=== PATIENT | female | born 1990 | race Caucasian/White ===

== ENCOUNTER 2016-06-20 01:41 | Observation (INO) | payer MEDICAID, OTHER ==
--- NOTE | 2016-06-20 03:02 | ED PDOC ---
Arrival/HPI - General Chief Complaint: Syncope Time Seen by Provider: 06/20/16 01:59 Historian: Patient - History of Present Illness Narrative History of Present Illness (Text): 06/20/16 02:56 25 year old female who denies any significant past medical history presents to the Emergency department s/p syncopal episode [employer]. Patient reports she passed out while talking on the phone and woke up to her mother screaming. She states she doesn't remember losing consciousness or if she hit her head. Patient was also complaining some chest discomfort earlier but none now. She denies headache , dizziness, fever,shortness of breath, cough, nausea, vomiting, or diarrhea. She denies drug use. She states she is not a smoker other than occassional "hookah " and does not take any prescription medications. Time/Duration: Prior to Arrival Symptom Onset: Sudden Activities at Onset: Rest Context: Standing Past Medical History - Provider Review Nursing Documentation Reviewed: Yes - Infectious Disease Hx of Infectious Diseases: None - Cardiac Hx Hypotension: Yes - Hematological/Oncological Hx Anemia: Yes - Psychiatric Hx Substance Use: No - Anesthesia Hx Anesthesia: No Family/Social History - Physician Review Nursing Documentation Reviewed: Yes Family/Social History: Unknown Family HX Smoking Status: Never Smoked Hx Alcohol Use: No Hx Substance Use: No Allergies/Home Meds Allergies/Adverse Reactions: Allergies No Known Allergies Allergy (Verified 06/20/16 11:52) Home Medications: Home Meds Medication Instructions Recorded Confirmed No Known Home Med 03/24/16 06/20/16 Review of Systems - Physician Review All systems were reviewed & negative as marked: Yes - Review of Systems Constitutional: absent: Fevers Respiratory: absent: SOB, Cough Cardiovascular: Syncope. absent: Chest Pain Gastrointestinal: absent: Diarrhea, Nausea, Vomiting Neurological: absent: Headache, Dizziness Physical Exam Vital Signs Reviewed: Yes Vital Signs Temp Pulse Resp BP Pulse Ox 06/20/16 06:20 68 17 126/71 100 06/20/16 04:12 72 16 125/64 99 06/20/16 02:02 98.2 F 80 16 127/83 98 Temperature: Afebrile Blood Pressure: Normal Pulse: Regular Respiratory Rate: Normal Appearance: Positive for: Well-Appearing, Non-Toxic, Comfortable Pain Distress: None Mental Status: Positive for: Alert and Oriented X 3 - Systems Exam Head: Present: Atraumatic, Normocephalic Pupils: Present: PERRL Extroacular Muscles: Present: EOMI Conjunctiva: Present: Normal Mouth: Present: Moist Mucous Membranes Neck: Present: Normal Range of Motion Respiratory/Chest: Present: Clear to Auscultation, Good Air Exchange. No: Respiratory Distress, Accessory Muscle Use, Wheezes, Rales, Rhonchi Cardiovascular: Present: Regular Rate and Rhythm, Normal S1, S2. No: Murmurs, Rub, Gallop Abdomen: Present: Normal Bowel Sounds. No: Tenderness, Distention, Peritoneal Signs, Rebound, Guarding Back: Present: Normal Inspection Upper Extremity: Present: Normal Inspection. No: Cyanosis, Edema Lower Extremity: Present: Normal Inspection. No: Edema Neurological: Present: GCS=15, CN II-XII Intact, Speech Normal Skin: Present: Warm, Dry, Normal Color. No: Rashes Psychiatric: Present: Alert, Oriented x 3, Normal Insight, Normal Concentration Medical Decision Making ED Course and Treatment: 06/20/16 03:05 Impression: 25 year old female s/p syncopal episode. Physical exam unremarkable. Plan: --CT Head --CXR --EKG --Labs -- Reassess and disposition Prior Visits: Notes and results from previous visits were reviewed. Progress Notes: 06/20/16 04:42 EKG: Ordered, reviewed, and independently interpreted the EKG. Rate : 69 BPM Rhythm : NSR Interpretation : nonspecific ST/T changes 06/20/16 04:56 EXAM:CT Head Without Intravenous Contrast Dictated and Authenticated by: Pascual Alas MD FINDINGS: Brain: No intracranial hemorrhage. No mass. No definite edema. Ventricles: No hydrocephalus. Bones/joints: No acute fracture. Soft tissues: Unremarkable. Sinuses: No acute sinusitis. Mastoid air cells: No mastoid effusion. Orbits: Unremarkable as visualized. IMPRESSION: 1. No acute intracranial abnormality. 2. Incidental/non-acute findings are described above. 06/20/16 05:24 Chest X-ray Impression: negative, read by me 06/20/16 05:37 Case discussed with house resident Dr. Larsen and Dr Stahl who accepts patient to hospitalist service. - Lab Interpretations Lab Results: 06/20/16 03:35 06/20/16 03:35 Lab Results 06/20/16 03:35: WBC 7.5, RBC 5.34, Hgb 12.7, Hct 39.9, MCV 74.7 L, MCH 23.8 L, MCHC 31.8, RDW 16.4 H, Plt Count 214, PT 11.5, INR 1.06, APTT 26.1, Sodium 139, Potassium 3.8, Chloride 100, Carbon Dioxide 30, Anion Gap 13, BUN 19, Creatinine 0.8, Est GFR ( Amer) > 60, Est GFR (Non-Af Amer) > 60, Random Glucose 84, Calcium 9.3, Total Bilirubin 0.3, AST 22, ALT 23, Alkaline Phosphatase 69, Lactate Dehydrogenase 381, Total Creatine Kinase 83, Troponin I < 0.01, Total Protein 7.8, Albumin 4.2, Globulin 3.6, Albumin/Globulin Ratio 1.2 I have reviewed the lab results: Yes - RAD Interpretation Radiology Orders: 06/20/16 02:56 HEAD W/O CONTRAST [CT] Stat 06/20/16 05:09 CHEST PORTABLE [RAD] Stat - Medication Orders Current Medication Orders: Aspirin (Aspirin Chewable) 81 mg PO DAILY [facility] Last Admin: 06/20/16 09:35 Dose: 81 MG Sodium Chloride (Sodium Chloride 0.9%) 1,000 mls @ 100 mls/hr IV .Q10H [facility] Last Admin: 06/21/16 02:18 Dose: 100 MLS/HR eMAR Start Stop Document 06/21/16 02:18 JOAN (Rec: 06/21/16 02:18 [id number] ) Intravenous Solution Start Date 06/21/16 Start Time 02:18 Discontinued Medications Sodium Chloride (Sodium Chloride 0.9%) 1,000 mls @ 125 mls/hr IV .Q8H [facility] Last Admin: 06/20/16 15:15 Dose: - Scribe Statement The provider has reviewed the documentation as recorded by the Humberto Villarreal Provider Estebanibe Attestation: All medical record entries made by the Scribe were at my direction and personally dictated by me. I have reviewed the chart and agree that the record accurately reflects my personal performance of the history, physical exam, medical decision making, and the department course for this patient. I have also personally directed, reviewed, and agree with the discharge instructions and disposition. Disposition/Present on Arrival - Present on Arrival Any Indicators Present on Arrival: No History of DVT/PE: No History of Uncontrolled Diabetes: No Urinary Catheter: No History of Decub. Ulcer: No History Surgical Site Infection Following: None - Disposition Have Diagnosis and Disposition been Completed?: Yes Diagnosis: Syncope, Chest pain Disposition: HOSPITALIZED Disposition Time: 05:27 Patient Plan: Observation Patient Problems: Current Active Problems Problem Status Diagnosed Chest pain Acute Syncope Acute Condition: GOOD
[2016-06-20 04:02] LABS: ALB/GLOB RATIO 1.2 (1.1-1.8); ALKALINE PHOSPHATASE 69 U/L (38-133); ALT/SGPT 23 U/L (7-56); AST/SGOT 22 U/L (15-39); BILIRUBIN,TOTAL 0.3 mg/dL (0.2-1.3); BLOOD UREA NITROGEN 19 mg/dL (7-21); CALCIUM 9.3 mg/dL (8.4-10.5); CARBON DIOXIDE 30 mmol/L (21-33); CHLORIDE 100 mmol/L (98-107); GFR AFRICAN-AMERICAN > 60; GLUCOSE,RANDOM 84 mg/dL (70-110); POTASSIUM 3.8 mmol/L (3.6-5.0); SODIUM 139 mmol/L (132-148); TOTAL PROTEIN 7.8 g/dL (5.8-8.3)
[2016-06-20 04:04] LABS: HEMATOCRIT 39.9 % (36.0-48.0); WHITE BLOOD COUNT 7.5 10^3/ul (4.5-11.0)
[2016-06-20 04:05] LABS: MEAN CELL VOLUME 74.7 fL (80.0-105.0); MEAN CORPUSCULAR HEMOGLOBIN 23.8 pg (25.0-35.0); MEAN CORPUSCULAR HGB CONC 31.8 g/dl (31.0-37.0); PLATELET COUNT 214 10^3/uL (120.0-450.0); RED CELL DISTRIBUTION WIDTH 16.4 % (11.5-14.5)
[2016-06-20 04:07] LABS: INR 1.06 (0.93-1.08); PARTIAL THROMBOPLASTIN TIME 26.1 Seconds (23.7-30.8)
[2016-06-20 04:19] LABS: TROPONIN I < 0.01 ng/mL
--- NOTE | 2016-06-20 04:51 | CT ---
EXAM: CT Head Without Intravenous Contrast CLINICAL HISTORY: 25 years old, female; Pain and signs and symptoms; Syncope and collapse; Headache TECHNIQUE: Axial computed tomography images of the head/brain without intravenous contrast. This CT exam was performed using one or more of the following dose reduction techniques: automated exposure control, adjustment of the mA and/or kV according to patient size, and/or use of iterative reconstruction technique. COMPARISON: CT - HEAD W/O CONTRAST 12/30/2015 12:04:23 PM FINDINGS: Brain: No intracranial hemorrhage. No mass. No definite edema. Ventricles: No hydrocephalus. Bones/joints: No acute fracture. Soft tissues: Unremarkable. Sinuses: No acute sinusitis. Mastoid air cells: No mastoid effusion. Orbits: Unremarkable as visualized. IMPRESSION: 1. No acute intracranial abnormality. 2. Incidental/non-acute findings are described above.
--- NOTE | 2016-06-20 05:58 | CP.PCM.HP ---
<Venu Xavier - Last Filed: 06/20/16 06:05> History of Present Illness - History of Present Illness History of Present Illness: cc: Syncope HPI: Patient is a 25yo female with no significant past medical history that presents s/p syncopal episode at home. Patient reports she was in bed sleeping when she received a phone call. She states that she stood up from bed to answer the phone, spoke for several moments when suddenly she passed out and woke up to her mother standing over her. Her mother was at bedside in the ED and denied post-ictal state. Patient stated that she had never experienced an episode like this in the past. On arrival to the ED, patient's vitals were as follows: temperature 98.2F, heart rate 80bpm, blood pressure 127/83, RR 16, o2sat 98% on room air. EKG revealed normal sinus rhythm with no acute ST-T wave changes. CXR revealed no acute pathology. Patient denied chest pain, palpitations, SOB, abdominal pain, nausea, vomiting, bowel/bladder incontinence, focal weakness, numbness, tingling, dizziness. 12 point ROS as per HPI otherwise negative PMHx: none PSHx: prior ear surgery (~14yrs ago) Allergies: NKDA Medications: none Family hx: Mother: Hepatitis C; Father: DM2, HTN, CAD (); Older sister: Hepatitic C, DM; Brother: HTN Social Hx: Works at [employer]; Denies illicit drug use, tobacco use and alcohol use Present on Admission - Present on Admission Any Indicators Present on Admission: No Past Patient History - Infectious Disease Hx of Infectious Diseases: None - Past Social History Smoking Status: Never Smoked - CARDIAC Hx Hypotension: Yes - HEMATOLOGICAL/ONCOLOGICAL Hx Anemia: Yes - PSYCHIATRIC Hx Substance Use: No - SURGICAL HISTORY Hx Surgeries: No - ANESTHESIA Hx Anesthesia: No Meds Allergies/Adverse Reactions: Allergies Allergy/AdvReac Type Severity Reaction Status Date / Time No Known Allergies Allergy Verified 12/29/15 06:47 Physical Exam - Constitutional Appears: No Acute Distress - Head Exam Head Exam: ATRAUMATIC, NORMAL INSPECTION, NORMOCEPHALIC - Eye Exam Eye Exam: EOMI, PERRL - ENT Exam ENT Exam: Mucous Membranes Moist - Neck Exam Neck exam: Positive for: Normal Inspection. Negative for: Lymphadenopathy, Tenderness, Thyromegaly - Respiratory Exam Respiratory Exam: Clear to Auscultation Bilateral. absent: Rales, Rhonchi, Wheezes - Cardiovascular Exam Cardiovascular Exam: RRR, +S1, +S2. absent: Clicks, Diastolic murmur, Gallop, JVD, Rubs, Systolic Murmur - GI/Abdominal Exam GI & Abdominal Exam: Normal Bowel Sounds, Soft. absent: Distended, Firm, Guarding, Rebound, Tenderness - Neurological Exam Neurological exam: Alert, CN II-XII Intact, Oriented x3 - Psychiatric Exam Psychiatric exam: Normal Affect, Normal Mood - Skin Skin Exam: Dry, Intact, Normal Color, Warm Results - Vital Signs Recent Vital Signs: Last Vital Signs Temp 98.2 F 06/20/16 02:02 Pulse 72 06/20/16 04:12 Resp 16 06/20/16 04:12 BP 125/64 06/20/16 04:12 Pulse Ox 99 06/20/16 04:12 - Labs Result Diagrams: 06/20/16 03:35 06/20/16 03:35 Labs: Laboratory Results - last 24 hr 06/20/16 03:35 WBC 7.5 RBC 5.34 Hgb 12.7 Hct 39.9 MCV 74.7 L MCH 23.8 L MCHC 31.8 RDW 16.4 H Plt Count 214 PT 11.5 INR 1.06 APTT 26.1 Sodium 139 Potassium 3.8 Chloride 100 Carbon Dioxide 30 Anion Gap 13 BUN 19 Creatinine 0.8 Est GFR ( Amer) > 60 Est GFR (Non-Af Amer) > 60 Random Glucose 84 Calcium 9.3 Total Bilirubin 0.3 AST 22 ALT 23 Alkaline Phosphatase 69 Lactate Dehydrogenase 381 Total Creatine Kinase 83 Troponin I < 0.01 Total Protein 7.8 Albumin 4.2 Globulin 3.6 Albumin/Globulin Ratio 1.2 Assessment & Plan - Assessment and Plan (Free Text) Assessment: 25yo female with no significant history presents s/p syncopal episode at home Plan: 1. Syncope -EKG reviewed; normal sinus rhythm, no acute ST-T wave changes -CXR reviewed; no acute pathology -Head CT reviewed; no acute intracranial pathology -Orthostatic vital signs pending -Echocardiogram pending -Repeat EKG -Cardiology consulted - Dr. Packer Patient seen and case discussed with attending, Dr. Stahl - Date & Time Date: 06/20/16 Time: 06:02 <Dax Stahl MD - Last Filed: 06/20/16 07:06> Results - Vital Signs Recent Vital Signs: Last Vital Signs Temp 98.2 F 06/20/16 02:02 Pulse 68 06/20/16 06:20 Resp 17 06/20/16 06:20 BP 126/71 06/20/16 06:20 Pulse Ox 100 06/20/16 06:20 - Labs Result Diagrams: 06/20/16 03:35 06/20/16 03:35 Attending/Attestation - Attestation I have personally seen and examined this patient.: Yes I have fully participated in the care of the patient.: Yes I have reviewed all pertinent clinical information: Yes Notes (Text): 06/20/16 07:05 -I agree with the above H&P completed by the resident physician. -Briefly, the patient is a 25 yo F with no significant past medical history admitted for syncope. DDx includes: orthostasis vs vasovagal vs cardiac Cards consult, orthostatics and 2D-echo have been ordered.
[2016-06-20] MEDS: Sodium Chloride 0.9% 1,000 ML IV SCH ×3 (08:25→17:20)
[2016-06-20 10:43] LABS: PHOSPHOROUS 3.5 mg/dL (2.5-4.5)
[2016-06-20 10:54] LABS: TROPONIN I < 0.01 ng/mL
--- NOTE | 2016-06-20 12:45 | CARD ---
APPROVED REPORT EKG Measurement Heart [id number] <Conclusion> Normal sinus rhythm Minimal voltage criteria for LVH, may be normal variant Borderline ECG
--- NOTE | 2016-06-20 13:08 | CARD ---
APPROVED REPORT EXAM: Two-dimensional and M-mode echocardiogram with Doppler and color Doppler. INDICATION Syncope 2D DIMENSIONS Left Atrium (2D)3.9 (1.6-4.0cm)IVSd1.0 (0.7-1.1cm) LVDd5.0 (3.9-5.9cm)PWd1.1 (0.7-1.1cm) LVDs3.5 (2.5-4.0cm)FS (%) 31.1 % LVEF (%)58.7 (>50%) M-Mode DIMENSIONS Aortic Root2.70 (2.2-3.7cm)Aortic Cusp Exc.1.90 (1.5-2.0cm) Aortic Valve AoV Peak Udxdbiaa644.0cm/Sal Peak GR.11mmHg Mitral Valve MV E Stzlifpq38.9cm/sMV A Cwmymwtw53.2cm/sE/A ratio1.3 TDI E/Lateral E'0.0E/Medial E'0.0 Tricuspid Valve TR Peak Nrrcgziy418vt/sRAP [id number] Peak Gr.16mmHg [id number] LEFT VENTRICLE The left ventricle is normal size. There is normal left ventricular wall thickness. The left ventricular function is normal.EF-55% There is normal LV segmental wall motion. The left ventricular diastolic function is normal. No left ventricle thrombus noted on this study. There is no ventricular septal defect visualized. There is no left ventricular aneurysm. There is no mass noted in the left ventricle. RIGHT VENTRICLE The right ventricle is normal size. There is normal right ventricular wall thickness. The right ventricular systolic function is normal. ATRIA The left atrium size is normal. The right atrium size is normal. The interatrial septum is intact with no evidence for an atrial septal defect. AORTIC VALVE The aortic valve is normal in structure. No aortic regurgitation is present. There is no aortic valvular stenosis. There is no aortic valvular vegetation. MITRAL VALVE The mitral valve is normal in structure. Mitral regurgitation is trace. There is no mitral valve stenosis. There is no evidence of mitral valve prolapse. TRICUSPID VALVE The tricuspid valve is normal in structure. There is trace tricuspid regurgitation.RVSP-26 mmof Hg There is no tricuspid valve stenosis. There is no tricuspid valve prolapse or vegetation. PULMONIC VALVE The pulmonary valve is normal in structure. There is no pulmonic valvular regurgitation. There is no pulmonic valvular stenosis. GREAT VESSELS The aortic root is normal in size. The ascending aorta is normal in size. The pulmonary artery is normal. The IVC is normal in size and collapses >50% with inspiration. PERICARDIAL EFFUSION There is no pleural effusion. There is no pericardial effusion. <Conclusion> Normal Chamber Size. EF-55% Trace MR/TR RVSP-26 mmof HG.
--- NOTE | 2016-06-20 13:46 | RAD ---
HISTORY: syncope COMPARISON: No prior. FINDINGS: LUNGS: No active pulmonary disease. PLEURA: No significant pleural effusion identified, no pneumothorax apparent. CARDIOVASCULAR: Normal. OSSEOUS STRUCTURES: No significant abnormalities. VISUALIZED UPPER ABDOMEN: Normal. OTHER FINDINGS: None. IMPRESSION: No active disease.
--- NOTE | 2016-06-20 13:56 | CON ---
DATE: 06/20/2016 REASON FOR CONSULTATION: Syncopal episode. HISTORY OF PRESENT ILLNESS: The patient is a 25-year-old [place] female who has no significant past medical history. The patient stated that, after she fell asleep around 12:00 midnight, she received a call from a friend about 12:30 and as she was arguing with her friend, she collapsed on the floor. Her mother came to help, tried to wake her up and after a few minutes, the patient herself realized she was on the floor and tried to assure her mom that she is okay. There was no reported seizure ac tivity by the mother and the patient does not recall any dizziness prior to her unresponsiveness on t he floor. The patient denies any incontinence or tongue biting. The patient denies any prior simila r episode in the past. The patient was told at one point her blood pressure is low, but denies any d izziness. SOCIAL HISTORY: Nonsmoker. She works at [employer]. MENSTRUAL HISTORY: The patient just finished her menses. MEDICATIONS: The patient is on no medications at home. PHYSICAL EXAMINATION: GENERAL: The patient is a young middle-aged female who does not appear to be in any distress. VITAL SIGNS: Blood pressure is 124/64, heart rate 73, temperature 98, respirations 16. HEENT: Normocephalic. NECK: No JVD. CHEST: Clear. HEART: S1, S2 regular. ABDOMEN: Soft. EXTREMITIES: No edema. LABORATORY DATA: SMA-7 is within normal limits. Two sets of troponins are within normal limits. PT , PTT and INR are within normal limits. Hemoglobin and hematocrit 12.7 and 39.9, platelet count 214, 000, white count 7.5. Chest x-ray was unremarkable. Head CT scan without contrast: No acute intrac ranial abnormality. EKG revealed normal sinus rhythm, minimal voltage criteria for LVH. ASSESSMENT: 1. Syncopal episode. 2. Rule out cataplexy. RECOMMENDATIONS: Continue current normal saline infusion and aspirin 81 mg once a day. Obtain serum D-dimer, urine test and we will follow echocardiographic study performed today. Jimbo Packer MD cc: [id number] TT: 06/20/2016 13:55:38 Confirmation # [id number] Dictation # [id number] tn
[2016-06-20 16:11] VITALS: BMI 35.4
[2016-06-20 16:47] LABS: TROPONIN I < 0.01 ng/mL
--- NOTE | 2016-06-20 18:37 | CON ---
DATE: 06/20/2016 CHIEF COMPLAINT: Syncopal episode. HISTORY OF PRESENT ILLNESS: This is a 25-year-old [place] woman with no significant past medical hi story, stated that she fell asleep around midnight and she got a call from her friend and woke up and had a conversation where she suddenly collapsed to the floor. She denies any history of any seizure -like activity. No history of any dizziness or lightheadedness. There was no tongue biting or any i ncontinence. She said she has been having episodes of chest tightness, palpitation-like, but otherwi se no acute abnormality. She has had a history of low blood pressure in the past. Though she said s he ate and hydrated well. His CAT scan showed no acute intracranial abnormalities. She denies any c onfusional episodes. She is not taking any herbal agents or any energy drinks. Currently, her neuro exam is nonfocal, she is moving all extremities. PAST MEDICAL HISTORY: Not significant. SOCIAL HISTORY: No illicit drug use, smoking or ETOH abuse. ALLERGIES: No known drug allergies. FAMILY HISTORY: Noncontributory. CURRENT MEDICATIONS: Reviewed via nurses' reconciliation sheet. REVIEW OF SYSTEMS: A 14-point review of systems was negative except for the HPI. PHYSICAL EXAMINATION: VITAL SIGNS: Temperature 98.0, pulse rate 73, blood pressure 124/64, respiratory rate 20, oxygen 98% on room air. GENERAL: The patient is sitting up in bed in no acute distress. HEENT: Atraumatic, normocephalic. PERRLA. Extraocular muscles intact. NECK: Supple, no JVD, no adenopathy noted. LUNGS: Clear to auscultation. No adventitious sounds. HEART: S1, S2, normal rate and rhythm. No murmurs, rubs, or gallops. ABDOMEN: Soft, nontender, nondistended. Bowel sounds present. EXTREMITIES: No clubbing, no cyanosis. Peripheral pulses are 2+ felt bilaterally. NEUROLOGIC: The patient is alert, oriented to person, place, month and year. Speech is fluent, with out any errors. Cranial nerves II through XII are intact. MOTOR: Moves all extremities. Toes downgoing bilaterally. SENSORY: Light touch, pinprick, proprioception, vibration is intact. DTRs are 2+ throughout. COORDINATION: Inkklp-px-[id number] intact. GAIT: Deferred for now. LABORATORY DATA: SMA-7 was within normal limits. A CT head showed no acute intracranial abnormaliti es. IMPRESSION: This is a 25-year-old with no significant past medical history, who had a syncopal episo de after having a conversation with her friend. I feel like the syncopal episode could be a transien t vasovagal event rather than a seizure disorder. At this time she can follow up as an outpatient fo r an outpatient EEG if needed, but unlikely a seizure. I recommend orthostatic vitals and she is cli nically stable from my standpoint and cleared. Once again, thank you for this consult. Will sign off. Eagle Arango MD cc: [id number] TT: 06/20/2016 18:36:46 Confirmation # [id number] Dictation # [id number] curtis
[2016-06-21 01:21] VITALS: RESP 20
[2016-06-21] MEDS: Sodium Chloride 0.9% 1,000 ML IV SCH ×2 (02:18→13:10)
[2016-06-21 05:34] VITALS: O2SAT 100
[2016-06-21 08:06] LABS: ADD MANUAL DIFF? NO
[2016-06-21 08:27] LABS: BASO # 0.02 K/mm3 (0.0-2.0); BASO % 0.3 % (0.0-3.0); EOS # 0.1 (0.0-0.7); EOS % 2.1 % (1.5-5.0); GRAN % 42.5 % (50.0-68.0); HEMATOCRIT 39.6 % (36.0-48.0); LYMPH # 2.8 (1.2-3.4); LYMPH % 46.1 % (22.0-35.0); MEAN CELL VOLUME 75.3 fL (80.0-105.0); MEAN CORPUSCULAR HEMOGLOBIN 23.4 pg (25.0-35.0); MEAN CORPUSCULAR HGB CONC 31.1 g/dl (31.0-37.0); MONO # 0.6 (0.1-0.6); PLATELET COUNT 183 10^3/uL (120.0-450.0); RED CELL DISTRIBUTION WIDTH 15.7 % (11.5-14.5); WHITE BLOOD COUNT 6.1 10^3/ul (4.5-11.0)
[2016-06-21 08:34] LABS: ALB/GLOB RATIO 1.2 (1.1-1.8); ALKALINE PHOSPHATASE 44 U/L (38-133); ALT/SGPT 14 U/L (7-56); AST/SGOT 18 U/L (15-39); BILIRUBIN,TOTAL 0.4 mg/dL (0.2-1.3); BLOOD UREA NITROGEN 13 mg/dL (7-21); CALCIUM 8.5 mg/dL (8.4-10.5); CARBON DIOXIDE 27 mmol/L (21-33); CHLORIDE 102 mmol/L (95-110); GFR AFRICAN-AMERICAN > 60; GLUCOSE,RANDOM 100 mg/dL (70-110); SODIUM 137 mmol/L (132-148); TOTAL PROTEIN 6.9 g/dL (5.8-8.3)
[2016-06-21 08:44] LABS: POTASSIUM 4.3 mmol/L (3.6-5.0)
[2016-06-21 12:28] VITALS: BP 118/60; TEMP 97.7
--- NOTE | 2016-06-21 12:46 | CP.PCM.DIS ---
<Eliceo Carmona - Last Filed: 06/21/16 12:52> Provider - Provider Date of Admission: 06/20/16 05:34 Attending physician: Blossom Salazar MD Consults: Neuro - Dr. Arango Cardio - Dr. Packer Time Spent in preparation of Discharge (in minutes): 45 Diagnosis - Discharge Diagnosis (1) Syncope Status: Resolved Priority: Low Hospital Course - Lab Results Lab Results: Most Recent Lab Values WBC 6.1 10^3/ul (4.5-11.0) 06/21/16 07:00 RBC 5.26 10^6/uL (3.5-6.1) 06/21/16 07:00 Hgb 12.3 gm/dL (12.0-16.0) 06/21/16 07:00 Hct 39.6 % (36.0-48.0) 06/21/16 07:00 MCV 75.3 fL (80.0-105.0) L 06/21/16 07:00 MCH 23.4 pg (25.0-35.0) L 06/21/16 07:00 MCHC 31.1 g/dl (31.0-37.0) 06/21/16 07:00 RDW 15.7 % (11.5-14.5) H 06/21/16 07:00 Plt Count 183 10^3/uL (120.0-450.0) 06/21/16 07:00 Gran % 42.5 % (50.0-68.0) L 06/21/16 07:00 Lymph % (Auto) 46.1 % (22.0-35.0) H 06/21/16 07:00 [place] % (Auto) 9.0 % (1.0-6.0) H 06/21/16 07:00 Eos % (Auto) 2.1 % (1.5-5.0) 06/21/16 07:00 Baso % (Auto) 0.3 % (0.0-3.0) 06/21/16 07:00 Gran # 2.60 (1.4-6.5) 06/21/16 07:00 Lymph # 2.8 (1.2-3.4) 06/21/16 07:00 [place] # 0.6 (0.1-0.6) 06/21/16 07:00 Eos # 0.1 (0.0-0.7) 06/21/16 07:00 Baso # 0.02 K/mm3 (0.0-2.0) 06/21/16 07:00 PT 11.5 Seconds (9.9-11.8) 06/20/16 03:35 INR 1.06 (0.93-1.08) 06/20/16 03:35 APTT 26.1 Seconds (23.7-30.8) 06/20/16 03:35 D-Dimer, Quantitative 0.19 mg/L FEU (0-0.50) 06/20/16 16:00 Sodium 137 mmol/L (132-148) 06/21/16 07:00 Potassium 4.3 mmol/L (3.6-5.0) 06/21/16 07:00 Chloride 102 mmol/L (95-110) 06/21/16 07:00 Carbon Dioxide 27 mmol/L (21-33) 06/21/16 07:00 Anion Gap 12 (10-20) 06/21/16 07:00 BUN 13 mg/dL (7-21) 06/21/16 07:00 Creatinine 0.6 mg/dL (0.5-1.4) 06/21/16 07:00 Est GFR ( Amer) > 60 06/21/16 07:00 Est GFR (Non-Af Amer) > 60 06/21/16 07:00 POC Glucose (mg/dL) 109 mg/dL (65-110) 06/21/16 07:12 Random Glucose 100 mg/dL (70-110) 06/21/16 07:00 Calcium 8.5 mg/dL (8.4-10.5) 06/21/16 07:00 Phosphorus 3.5 mg/dL (2.5-4.5) 06/20/16 10:20 Magnesium 2.0 mg/dL (1.7-2.2) 06/20/16 10:20 Total Bilirubin 0.4 mg/dL (0.2-1.3) 06/21/16 07:00 AST 18 U/L (15-39) 06/21/16 07:00 ALT 14 U/L (7-56) 06/21/16 07:00 Alkaline Phosphatase 44 U/L (38-133) 06/21/16 07:00 Lactate Dehydrogenase 336 U/L (333-699) 06/20/16 16:00 Total Creatine Kinase 67 U/L (35-230) 06/20/16 16:00 Troponin I < 0.01 ng/mL 06/20/16 16:00 Total Protein 6.9 g/dL (5.8-8.3) 06/21/16 07:00 Albumin 3.7 g/dL (3.0-4.8) 06/21/16 07:00 Globulin 3.2 gm/dL 06/21/16 07:00 Albumin/Globulin Ratio 1.2 (1.1-1.8) 06/21/16 07:00 TSH 3rd Generation 3.39 mIU/mL (0.46-4.68) 06/20/16 13:00 Urine Opiates Screen Negative (NEGATIVE) 06/20/16 16:20 Urine Methadone Screen Negative (NEGATIVE) 06/20/16 16:20 Ur Barbiturates Screen Negative (NEGATIVE) 06/20/16 16:20 Ur Phencyclidine Scrn Negative (NEGATIVE) 06/20/16 16:20 Ur Amphetamines Screen Negative (NEGATIVE) 06/20/16 16:20 U Benzodiazepines Scrn Negative (NEGATIVE) 06/20/16 16:20 U Oth Cocaine Metabols Negative (NEGATIVE) 06/20/16 16:20 U Cannabinoids Screen Negative (NEGATIVE) 06/20/16 16:20 - Hospital Course Hospital Course: 25 y/o female with no significant PMH that presents s/p syncopal episode at home. Pt had a syncopal event after standing up from [facility] to answer her phone. Pt came to the ED and denied any post-ictal state or bladder or bowel incontinence. Pt never experienced anything like this in the past. Head CT showed no acute pathology. Neurology, Dr. Arango, saw the patient and stated it was likely a transient vaso-vagal event and pt should follow up outpt for an EEG. Pt was also seen by cardiology, Dr. Packer, who ordered echocardiogram. Echocardiogram showed normal EF with trace MR/TR. Pt will follow up with cardiology and neurology as an outpt. Pt discharged on 06/21/16 and told to continue on ASA. Discharge Exam - Head Exam Head Exam: ATRAUMATIC, NORMAL INSPECTION, NORMOCEPHALIC - ENT Exam ENT Exam: Mucous Membranes Moist, Normal Exam - Respiratory Exam Respiratory Exam: NORMAL BREATHING PATTERN, UNREMARKABLE. absent: Rales, Rhonchi, Wheezes - Cardiovascular Exam Cardiovascular Exam: RRR, +S1, +S2 - GI/Abdominal Exam GI & Abdominal Exam: Normal Bowel Sounds, Soft. absent: Tenderness - Extremities Exam Extremities exam: normal inspection - Neurological Exam Neurological exam: Alert, CN II-XII Intact, Oriented x3 - Skin Skin Exam: Intact, Normal Color, Warm Additional comments: Hyperpigmentation on right side of face. Discharge Plan - Follow Up Plan Condition: GOOD Disposition: HOME/ ROUTINE Patient education suggested?: Yes Instructions: Syncope (DC), Syncope (GEN) Additional Instructions: Follow up with PMD in 1 week. Follow up with Cardiology in 1 week. Follow up with Neurology in 1 week. Continue Aspirin. Return to hospital is symptoms reoccur or worsen. <Blossom Salazar - Last Filed: 06/21/16 13:01> Provider - Provider Date of Admission: 06/20/16 05:34 Attending physician: Blossom Salazar MD [facility] Course - Lab Results Lab Results: Most Recent Lab Values WBC 6.1 10^3/ul (4.5-11.0) 06/21/16 07:00 RBC 5.26 10^6/uL (3.5-6.1) 06/21/16 07:00 Hgb 12.3 gm/dL (12.0-16.0) 06/21/16 07:00 Hct 39.6 % (36.0-48.0) 06/21/16 07:00 MCV 75.3 fL (80.0-105.0) L 06/21/16 07:00 MCH 23.4 pg (25.0-35.0) L 06/21/16 07:00 MCHC 31.1 g/dl (31.0-37.0) 06/21/16 07:00 RDW 15.7 % (11.5-14.5) H 06/21/16 07:00 Plt Count 183 10^3/uL (120.0-450.0) 06/21/16 07:00 Gran % 42.5 % (50.0-68.0) L 06/21/16 07:00 Lymph % (Auto) 46.1 % (22.0-35.0) H 06/21/16 07:00 [place] % (Auto) 9.0 % (1.0-6.0) H 06/21/16 07:00 Eos % (Auto) 2.1 % (1.5-5.0) 06/21/16 07:00 Baso % (Auto) 0.3 % (0.0-3.0) 06/21/16 07:00 Gran # 2.60 (1.4-6.5) 06/21/16 07:00 Lymph # 2.8 (1.2-3.4) 06/21/16 07:00 [place] # 0.6 (0.1-0.6) 06/21/16 07:00 Eos # 0.1 (0.0-0.7) 06/21/16 07:00 Baso # 0.02 K/mm3 (0.0-2.0) 06/21/16 07:00 PT 11.5 Seconds (9.9-11.8) 06/20/16 03:35 INR 1.06 (0.93-1.08) 06/20/16 03:35 APTT 26.1 Seconds (23.7-30.8) 06/20/16 03:35 D-Dimer, Quantitative 0.19 mg/L FEU (0-0.50) 06/20/16 16:00 Sodium 137 mmol/L (132-148) 06/21/16 07:00 Potassium 4.3 mmol/L (3.6-5.0) 06/21/16 07:00 Chloride 102 mmol/L (95-110) 06/21/16 07:00 Carbon Dioxide 27 mmol/L (21-33) 06/21/16 07:00 Anion Gap 12 (10-20) 06/21/16 07:00 BUN 13 mg/dL (7-21) 06/21/16 07:00 Creatinine 0.6 mg/dL (0.5-1.4) 06/21/16 07:00 Est GFR ( Amer) > 60 06/21/16 07:00 Est GFR (Non-Af Amer) > 60 06/21/16 07:00 POC Glucose (mg/dL) 109 mg/dL (65-110) 06/21/16 07:12 Random Glucose 100 mg/dL (70-110) 06/21/16 07:00 Calcium 8.5 mg/dL (8.4-10.5) 06/21/16 07:00 Phosphorus 3.5 mg/dL (2.5-4.5) 06/20/16 10:20 Magnesium 2.0 mg/dL (1.7-2.2) 06/20/16 10:20 Total Bilirubin 0.4 mg/dL (0.2-1.3) 06/21/16 07:00 AST 18 U/L (15-39) 06/21/16 07:00 ALT 14 U/L (7-56) 06/21/16 07:00 Alkaline Phosphatase 44 U/L (38-133) 06/21/16 07:00 Lactate Dehydrogenase 336 U/L (333-699) 06/20/16 16:00 Total Creatine Kinase 67 U/L (35-230) 06/20/16 16:00 Troponin I < 0.01 ng/mL 06/20/16 16:00 Total Protein 6.9 g/dL (5.8-8.3) 06/21/16 07:00 Albumin 3.7 g/dL (3.0-4.8) 06/21/16 07:00 Globulin 3.2 gm/dL 06/21/16 07:00 Albumin/Globulin Ratio 1.2 (1.1-1.8) 06/21/16 07:00 TSH 3rd Generation 3.39 mIU/mL (0.46-4.68) 06/20/16 13:00 Urine Opiates Screen Negative (NEGATIVE) 06/20/16 16:20 Urine Methadone Screen Negative (NEGATIVE) 06/20/16 16:20 Ur Barbiturates Screen Negative (NEGATIVE) 06/20/16 16:20 Ur Phencyclidine Scrn Negative (NEGATIVE) 06/20/16 16:20 Ur Amphetamines Screen Negative (NEGATIVE) 06/20/16 16:20 U Benzodiazepines Scrn Negative (NEGATIVE) 06/20/16 16:20 U Oth Cocaine Metabols Negative (NEGATIVE) 06/20/16 16:20 U Cannabinoids Screen Negative (NEGATIVE) 06/20/16 16:20 Attending/Attestation - Attestation I have personally seen and examined this patient.: Yes I have fully participated in the care of the patient.: Yes I have reviewed all pertinent clinical information, including history, physical exam and plan: Yes Notes (Text): 06/21/16 12:57 25 year old female with no significant past medical history who presented after syncopal episode at home. She states she was answering her phone in the middle of the night when she passed out. She was found by her mother. CT head was negative. Orthostatics were negative as well. Echocardiogram was reviewed as above. Patient was seen by cardiology and neurology. Etiology of syncope is unclear; possibly vasvegal event. Patient was observed overnight on telemetry unit. She denies any complaints today. Denies any dizziness. She is discharged home today to follow up with her pmd or [facility]. Follow up with neurology as outpatient for elective EEG. Blossom Salazar MD Hospitalist.
--- NOTE | 2016-06-21 13:53 | PN ---
DATE: 06/21/2016 The patient denies any palpitations, dizziness, chest pain or shortness of breath. VITAL SIGNS: Blood pressure 118/60, heart rate 71, temperature 97.7, respirations 20. Echocardiograph study is unremarkable, no reported arrhythmia. ASSESSMENT: A period of unresponsiveness, rule out cataplexy, very unlikely cardiac event. RECOMMENDATIONS: Continue current aspirin 81 mg once a day. No further cardiac workup. Jimbo Packer MD cc: [id number] TT: 06/21/2016 13:52:47 Confirmation # [id number] Dictation # [id number] en
[2016-06-21 14:02] VITALS: PULSE 76
== END 2016-06-21 14:19 | disposition home or self-care (01) ==
LOC: ED 01:41 → ERH 05:34 → 2RSO 07:19
PROVIDERS: ADMIT Internal Medicine; ATTEND Internal Medicine
DX: R55 Syncope and collapse (principal)
CPT/HCPCS: 36415; 70450; 71010; 80053; 82550; 82948; 83615; 83735; 84100; 84443; 84484; 85025; 85027; 85378; 85610; 85730; 93005; 93306; 99285; G0378; G0480

== ENCOUNTER 2017-03-22 10:09 | Emergency (ER) | payer SELFPAY ==
[2017-03-22 10:09] VITALS: BMI 35.4
--- NOTE | 2017-03-22 10:48 | ED PDOC ---
Arrival/HPI - General Chief Complaint: Flu-like Symptoms Time Seen by Provider: 03/22/17 10:42 Historian: Patient - History of Present Illness Narrative History of Present Illness (Text): 03/22/17 10:43 This 26 yo female presents to this ED c/o chills, fever, myalgias, cough since last night. Patient denies cp, sob, abdominal pain, vaginal discharge, urinary symptoms, skin rash, recent travel, hemoptysis, sick contact, dizziness, agudelo, neck stiffness, leg swelling, calf pain, or abnormal gait. Time/Duration: Other (see hpi) Context: Home Past Medical History - Provider Review Nursing Documentation Reviewed: Yes - Infectious Disease Hx of Infectious Diseases: None - Cardiac Hx Cardiac Disorders: No - Pulmonary Hx Respiratory Disorders: Yes Other/Comment: SMOKES HOOKAH 2 X A YR - Neurological Hx Neurological Disorder: Yes (SYNCOPE 06-20-16) - HEENT Hx HEENT Disorder: Yes (EAR SX WHEN SHE WAS 11 YRS OLD.) - Renal Hx Renal Disorder: No - Endocrine/Metabolic Hx Endocrine Disorders: No - Hematological/Oncological Hx Blood Disorders: Yes Hx Anemia: Yes - Integumentary Hx Dermatological Disorder: No - Musculoskeletal/Rheumatological Hx Musculoskeletal Disorders: Yes Hx Falls: Yes - Gastrointestinal Hx Gastrointestinal Disorders: No - Genitourinary/Gynecological Hx Genitourinary Disorders: No - Psychiatric Hx Psychophysiologic Disorder: No Hx Substance Use: No - Surgical History Other/Comment: 11YRS OLD HAD EAR SX - Anesthesia Hx Anesthesia: No Family/Social History - Physician Review Nursing Documentation Reviewed: Yes Family/Social History: Other (noncontributory) Smoking Status: Former Smoker Hx Alcohol Use: No Hx Substance Use: No Allergies/Home Meds Allergies/Adverse Reactions: Allergies No Known Allergies Allergy (Verified 03/22/17 10:12) Review of Systems - Review of Systems Constitutional: Fevers. absent: Fatigue, Weight Change, Night Sweats Eyes: Normal ENT: Normal Respiratory: Cough. absent: SOB, Sputum, Wheezing Cardiovascular: Normal. absent: Chest Pain Gastrointestinal: Normal. absent: Abdominal Pain, Nausea, Vomiting, Food Intolerance Genitourinary Female: Frequency. absent: Dysuria, Hematuria, Vaginal Bleeding, Vaginal Discharge Musculoskeletal: Myalgias. absent: Back Pain, Neck Pain Skin: Normal. absent: Rash Neurological: Normal. absent: Headache, Focal Weakness Endocrine: Normal Hemo/Lymphatic: Normal Psychiatric: Normal Physical Exam Vital Signs Temp Pulse Resp BP Pulse Ox 03/22/17 12:08 99 F 94 H 18 118/72 99 03/22/17 10:13 99.2 F 102 H 20 103/69 100 03/22/17 10:09 99.2 F 102 H 18 103/69 100 Temperature: Afebrile Blood Pressure: Normal Pulse: Regular Respiratory Rate: Normal Appearance: Positive for: Well-Appearing, Non-Toxic, Comfortable Pain Distress: None Mental Status: Positive for: Alert and Oriented X 3 - Systems Exam Head: Present: Atraumatic, Normocephalic Pupils: Present: PERRL Extroacular Muscles: Present: EOMI Conjunctiva: Present: Normal Mouth: Present: Moist Mucous Membranes Neck: Present: Normal Range of Motion Respiratory/Chest: Present: Clear to Auscultation, Good Air Exchange. No: Respiratory Distress, Accessory Muscle Use Cardiovascular: Present: Regular Rate and Rhythm, Normal S1, S2. No: Murmurs Abdomen: Present: Normal Bowel Sounds. No: Tenderness, Distention, Peritoneal Signs, Rebound, Guarding Back: Present: Normal Inspection Upper Extremity: Present: Normal Inspection. No: Cyanosis, Edema Lower Extremity: Present: Normal Inspection. No: Edema Neurological: Present: GCS=15, CN II-XII Intact, Speech Normal Skin: Present: Warm, Dry, Normal Color. No: Rashes Psychiatric: Present: Alert, Oriented x 3, Normal Insight, Normal Concentration Medical Decision Making ED Course and Treatment: 03/22/17 10:52 Re-evaluation. Patient feels better. Discussed results and plan with patient who expresses understanding. All questions answered and there is agreement with the plan to discharge home with instructions. Patient stable for discharge. Return if symptoms persist or worsen. Re-evaluation Time: 10:52 Reassessment Condition: Re-examined, Improved - Lab Interpretations Microbiology Results: Microbiology Results 03/22/17 11:30 Urine,Clean Catch Urine Culture - Final No Growth (<1,000 CFU/ML) Lab Results: Lab Results 03/22/17 11:08: Urine HCG, Qual Negative 03/22/17 11:08: Urine Color Yellow, Urine Appearance Clear, Urine pH 6.5, Ur Specific [place] 1.020, Urine Protein Trace H, Urine Glucose (UA) Negative, Urine Ketones Negative, Urine Blood Negative, Urine Nitrate Negative, Urine Bilirubin Negative, Urine Urobilinogen 0.2, Ur Leukocyte Esterase Trace H, Urine RBC Negative, Urine WBC 1 - 3, Ur Epithelial Cells 3 - 4, Urine Bacteria Mod 03/22/17 11:00: Influenza Typ A,B (EIA) Negative for flu a/b - Medication Orders Current Medication Orders: Discontinued Medications Azithromycin (Zithromax) 500 mg PO STAT STA PRN Reason: Protocol Stop: 03/22/17 11:53 Last Admin: 03/22/17 12:03 Dose: 500 mg Ketorolac Tromethamine (Toradol) 30 mg IM STAT STA Stop: 03/22/17 11:54 Last Admin: 03/22/17 11:04 Dose: 30 mg MAR Pain Assessment Document 03/22/17 11:04 SRE (Rec: 03/22/17 12:04 [id number] [id number]) Pain Reassessment Is this a pain reassessment? Yes Sleep Is patient sleeping during reassessment? No Presence of Pain Presence of Pain Yes Pain Scale Used Pain Scale Used Numeric Location Pain Location Body Site Generalized Description Description Constant Intensity of Pain at present 5 IM Administration Charges Document 03/22/17 11:04 SRE (Rec: 03/22/17 12:04 SRE [id number]) Injection Site MAR Injection Site Right Gluteus Merlin Charges for Administration # of IM Administrations 1 Disposition/Present on Arrival - Present on Arrival Any Indicators Present on Arrival: No History of DVT/PE: No History of Uncontrolled Diabetes: No Urinary Catheter: No History of Decub. Ulcer: No History Surgical Site Infection Following: None - Disposition Have Diagnosis and Disposition been Completed?: Yes Diagnosis: Influenza-like symptoms Disposition: HOME/ ROUTINE Disposition Time: 11:59 Patient Plan: Discharge Condition: GOOD Discharge Instructions (ExitCare): Influenza (ED) Additional Instructions: Call private doctor for follow up visit in 1-2 days. Take medication as instructed. Drink plenty of fluids, and rest. return to emergency if symptoms worsen Prescriptions: Azithromycin [Z-Victor Manuel] 250 mg PO DAILY #4 tab Cephalexin [cephalexin] 500 mg PO BID #10 cap Oseltamivir [Tamiflu] 75 mg PO BID #10 cap Promethazine/Codeine [Codeine/Promethazine 10 MG/5 Ml-6.25 MG/5 Ml] 5 ml PO Q4H #80 ml Referrals: [facility] [Outside] - Follow up with primary [facility] [Outside] - Follow up with primary Forms: [employer] (Taiwanese), WORK NOTE
[2017-03-22 11:15] LABS: PH,URINE 6.5 (4.7-8.0); URINE BILIRUBIN NEGATIVE (NEGATIVE); URINE BLOOD NEGATIVE (NEGATIVE); URINE GLUCOSE (UA) NEGATIVE (NEGATIVE); URINE LEUKOCYTE ESTERASE TRACE Leu/uL (NEGATIVE); URINE NITRATE NEGATIVE (NEGATIVE); URINE PROTEIN TRACE mg/dL (<30 mg/dL); URINE UROBILINOGEN 0.2 E.U./dL (<1 E.U./dL)
[2017-03-22 11:29] LABS: URINE APPEARANCE CLEAR (CLEAR); URINE COLOR YELLOW (YELLOW)
[2017-03-22 11:31] LABS: URINE BACTERIA MOD (NEG); URINE RBC NEGATIVE /hpf (0-2)
[2017-03-22 12:09] VITALS: BP 118/72; PULSE 94; RESP 18; TEMP 99; O2SAT 99
== END 2017-03-22 12:09 | disposition home or self-care (01) ==
LOC: ED 10:09
DX: J11.1 Influenza due to unidentified influenza virus with other respiratory manifestations (principal); Z87.891 Personal history of nicotine dependence
CPT/HCPCS: 81001; 84703; 87086; 87804; 96372; 99283; J1885